=== PATIENT | female | born 1945 | race African-American/Black ===

== ENCOUNTER → 2016-10-23 | Day surgery (SDC) | payer MEDICARE ==
[~2016-10-23] MED LIST: ALLO1POW MC; ALLO300T PO; BENA20TA2 PO; BYSTOLIC10 MG PO; CELE200C PO; DILT180C29 PO; DOCU-109 PO; GLIM1TAB2 PO; HYDR-2762 PO; IV RINGERS,LACTATED 1000ML 1,000 ML IV SCH; LEVO25TA55 PO; LEVO75TA5 PO; LIDOCAINE 2% PF Vial for OR 5 ML VIAL. ONE; METO50TA2 PO; OMEP10CA PO; OMEP40CA5 PO; PROPOFOL 40 ML IV ONE; SITA1TBM7 PO; WARF7.5T48 PO; WARF7.5T6 PO
[2016-10-23 08:40] VITALS: BP 131/91
--- NOTE | 2016-10-23 11:49 | CONS ---
DATE OF CONSULTATION: 10/23/2016 REFERRING PHYSICIAN: Mikey Santana MD REASON FOR CONSULTATION: Anemia. HISTORY OF PRESENT ILLNESS: This is a 71-year-old -[place] female whose past medical history is significant for osteoarthrosis, diabetes, hyperlipidemia, hypertension, is seen with persistent anemia. She previously has undergone a partial gastrectomy for a large benign gastric polyp with continued bleeding and she is here today for reevaluation. Also has a history of colonic polyps dating back to 2009 and she presently is on warfarin for DVT. PAST MEDICAL HISTORY: DVT, blood clot, diabetes, hyperlipidemia, hypertension. ALLERGIES: AMLODIPINE, IODINE, OXYCODONE. MEDICATIONS: Include allopurinol, benazepril, Celebrex, diltiazem, glimepiride, hydrocodone, levothyroxine, metoprolol, Bystolic, omeprazole, Janumet and warfarin. FAMILY AND SOCIAL HISTORY: She has had hysterectomy, joint replacement surgery, gastric polyp resection. She is a nonsmoker, nondrinker. REVIEW OF SYSTEMS: Per records. PHYSICAL EXAMINATION: GENERAL: Reveals a well-nourished, well-developed -[place] female. VITAL SIGNS: Temperature is 97, pulse 108, respirations 20. HEENT: Normocephalic and atraumatic head. Pupils and extraocular movements not tested. Sclerae anicteric. NECK: Supple. LUNGS: Clear. CARDIOVASCULAR: Reveals S1, S2 without S3, S4 or appreciable murmur. ABDOMEN: Reveals a soft abdomen, normal bowel sounds, without appreciable hepatosplenomegaly. Multiple surgical incisions. EXTREMITIES: Reveals no cyanosis, clubbing or edema. IMPRESSION: Anemia iron deficiency, status post partial gastrectomy, history of colonic polyps and gastric polyps, etiology is to be determined, peptic ulcer disease, arteriovenous malformation, irritable bowel disease. Malignancy is certainly differential; therefore, recommend upper endoscopy and colonoscopy to further assess. Risks and benefits have been discussed with the patient who is willing to proceed at this time. LEONARDO TAPIA MD DR: RENE/jeannine JOB#: [id number] / [id number]
== END | disposition home or self-care (01) ==
LOC: ENDOS 07:13
PROVIDERS: ATTEND Internal Medicine Gastroenterology
DX: D50.9 Iron deficiency anemia, unspecified (principal); K64.0 First degree hemorrhoids; K57.30 Diverticulosis of large intestine without perforation or abscess without bleeding; K29.50 Unspecified chronic gastritis without bleeding; K31.7 Polyp of stomach and duodenum; E78.00 Pure hypercholesterolemia, unspecified; K21.9 Gastro-esophageal reflux disease without esophagitis; I12.9 Hypertensive chronic kidney disease with stage 1 through stage 4 chronic kidney disease, or unspecified chronic kidney disease; E11.22 Type 2 diabetes mellitus with diabetic chronic kidney disease; N18.2 Chronic kidney disease, stage 2 (mild); E03.9 Hypothyroidism, unspecified; Z86.39 Personal history of other endocrine, nutritional and metabolic disease; Z86.718 Personal history of other venous thrombosis and embolism; Z90.710 Acquired absence of both cervix and uterus; Z88.8 Allergy status to other drugs, medicaments and biological substances
CPT/HCPCS: 43235; 45378; J2704; J2001

== ENCOUNTER → 2016-12-16 | Outpatient (CLI) | payer MEDICARE ==
[~2016-12-16] VITALS: Ht 162.6 cm; Wt 65.8 kg
[~2016-12-16] MED LIST changes: -IV RINGERS,LACTATED 1000ML 1,000 ML IV SCH; +LIDOCAINE 1% / SOD BICARB 8.4% 20 ML VIAL. IJ ONE; -LIDOCAINE 2% PF Vial for OR 5 ML VIAL. ONE; +LIDOCAINE 2%/EPI 1:100,000 20 ML VIAL. IJ ONE; -PROPOFOL 40 ML IV ONE
[2016-12-16 12:49] VITALS: BP 164/75
--- NOTE | 2016-12-18 00:03 | PATHOLOGY ---
PATHOLOGY REPORT * * * * * * * * FINAL DIAGNOSIS: Breast tissue, right breast nodule core biopsies: - Hemangioma. COMMENT: Sections of the right breast nodule core biopsy reveal a well demarcated, lobulated capillary hemangioma showing focal thrombosis. There is no evidence of malignancy. (JPM:rlm; 12/17/2016) REPORT ELECTRONICALLY SIGNED BY: Sedrick Leyva M.D. DATE/TIME: 12/17/2016 15:46 * * * * * * * * GROSS PATHOLOGY: Received in formalin labeled "Kathy Bennett, right breast nodule," are multiple needle cores of yellow-kelly fibrofatty tissue measuring 2.0 x 3.7 x 0.9 cm in aggregate dimensions. The tissue is submitted in its entirety in cassette A1 through A3. The cold ischemic time is 13 minutes. The total formalin fixation time is 10 hours and 2 minutes. (TSD; 12/16/2016) INITIAL CPT CODE(S): A; 00453 Professional services performed [place] [facility] [place] [address] Technical services performed by [facility] at [address] [place] [address] [address] [address]. SPECIMEN(S) RECEIVED: A.Right breast nodule CLINICAL HISTORY: Right breast nodule PATIENT: KATHY BENNETT /AGE: 4 1945 (Age: 71) PATIENT #: [id number] ALT CASE #: SPECIMEN COLLECTION DATE: 12/16/2016 SPECIMEN RECEIVED DATE: 12/16/2016 [facility] - [address] [place] [address] - PHONE: [phone] * * * END OF REPORT * * *
--- NOTE | 2016-12-18 15:41 | RAD ---
Stereotactic right breast biopsy, 12/16/2016: Outside studies demonstrated a suspicious superficial nodule at the 3:00 location in the right breast posteriorly. Under local anesthesia, aseptic conditions and stereotactic guidance the ReTargeter biopsy instrument was passed into this region via a medial approach. Multiple 9 gauge vacuum-assisted core samples were obtained and sent to pathology for evaluation. A biopsy marker was deposited at the biopsy site. The biopsy device was then removed and hemostasis obtained. Two-view postprocedural digital mammograms were then obtained on a separate mammographic for documentation of the position of the biopsy marker. The biopsied lesion is now obscured by postbiopsy change and minimal hemorrhage. The patient tolerated the procedure well and left the department in good condition. The subsequent pathology report indicated the presence of a hemangioma with focal thrombosis. There was no evidence of malignancy. The findings are considered to be concordant.
== END | disposition home or self-care (01) ==
LOC: MAMMO 11:30
PROVIDERS: ATTEND Surgery
DX: N63.10 Unspecified lump in the right breast, unspecified quadrant (principal); D18.09 Hemangioma of other sites; I82.90 Acute embolism and thrombosis of unspecified vein
CPT/HCPCS: 19085; 77022; 88305; C1713; G0206; J3490; 77065

== ENCOUNTER → 2017-09-01 | Outpatient (CLI) | payer OTHER | END | disposition home or self-care (01) | LOC: NM 08:34 | DX: I08.8 Other rheumatic multiple valve diseases (principal); I12.9 Hypertensive chronic kidney disease with stage 1 through stage 4 chronic kidney disease, or unspecified chronic kidney disease; E11.22 Type 2 diabetes mellitus with diabetic chronic kidney disease; N18.3 Chronic kidney disease, stage 3 (moderate); E78.5 Hyperlipidemia, unspecified; D50.9 Iron deficiency anemia, unspecified; E03.9 Hypothyroidism, unspecified | CPT/HCPCS: 78452; 93017; 93306; 96374; 96376; A9500 ==

== ENCOUNTER 2017-12-18 15:03 | Emergency (ER) | payer OTHER ==
[~2017-12-18] VITALS: Ht 162.6 cm; Wt 63.5 kg
[~2017-12-18 15:03] MED LIST changes: -BENA20TA2 PO; +BENA20TA4 PO; -LIDOCAINE 1% / SOD BICARB 8.4% 20 ML VIAL. IJ ONE; -LIDOCAINE 2%/EPI 1:100,000 20 ML VIAL. IJ ONE; -METO50TA2 PO; +METO50TA6 PO; +WARF7.5T45 PO; -WARF7.5T6 PO
[2017-12-18] MEDS ORDERED: IV NORMAL SALINE 1000ML BAG 1,000 ML IV SCH (15:21)
[2017-12-18] MEDS ORDERED: LIDO:MAALOX 1:1 20 ML SINGLE DOSE. SWSW ONE (15:45)
[2017-12-18 15:53] LABS: BASO % 1 % (0-3); EOS # 0.1 x10^3/uL (0.0-0.7); EOS % 2 % (0-3); HEMATOCRIT 31.1 % (36.0-47.0); HEMOGLOBIN 10.3 g/dL (12.0-15.5); LYMPH % 30 % (24-48); MEAN CORPUSCULAR HEMOGLOBIN 24 pg (25-35); MEAN CORPUSCULAR HGB CONC 33 g/dL (31-37); MEAN CORPUSCULAR VOLUME 73 fL (79-100); MONO # 0.4 x10^3/uL (0.0-1.1); MONO % 6 % (0-9); NEUT # 4.4 x10^3uL (1.8-7.7); NEUT % 63 % (31-73); PLATELET COUNT 259 x10^3/uL (140-400); RED BLOOD COUNT 4.26 x10^6/uL (3.50-5.40); RED CELL DISTRIBUTION WIDTH 23.9 % (11.5-14.5); WHITE BLOOD COUNT 6.9 x10^3/uL (4.0-11.0)
[2017-12-18 15:59] LABS: CALCIUM 9.7 mg/dL (8.5-10.1); CREATININE 1.3 mg/dL (0.6-1.0); GFR 48.7; POTASSIUM 3.7 mmol/L (3.5-5.1)
[2017-12-18] MEDS ORDERED: cloNIDine HCL 0.1 MG TABLET PO ONE (16:00)
[2017-12-18 16:01] LABS: PROTHROMBIN TIME PATIENT 19.4 SEC (11.7-14.0)
[2017-12-18 16:05] LABS: ALBUMIN 3.6 g/dL (3.4-5.0); ALBUMIN/GLOBULIN RATIO 0.8 (1.0-1.7); MAGNESIUM 2.1 mg/dL (1.8-2.4); TOTAL BILIRUBIN 0.3 mg/dL (0.2-1.0); TOTAL PROTEIN 8.4 g/dL (6.4-8.2)
[2017-12-18 16:08] LABS: D-DIMER 2.06 ug/mlFEU (0.00-0.50)
--- NOTE | 2017-12-18 16:14 | RAD ---
AP chest. HISTORY: Chest pain AP view was taken of the chest. Lungs are clear. Heart is normal in size without heart failure. There is no effusion. IMPRESSION: 1. No acute chest disease. Electronically signed by: Zenon Swain MD (12/18/2017 4:11 PM) [facility]
[2017-12-18] MEDS ORDERED: MORPHINE SULFATE 10 MG/ML VIAL. IV ONE ×2 (16:15→20:00)
--- NOTE | 2017-12-18 16:33 | PHYS DOC ---
Past Medical History Past Medical History: Arthritis, Diabetes-Type II, DVT, Hypertension, Hypothyroid, Other Additional Past Medical Histor: ployps, gout Past Surgical History: Hip Replacement, Hysterectomy, Other Additional Past Surgical Histo: EGD, Colonoscopy, stomach polyp removal Alcohol Use: None Drug Use: None Adult General Chief Complaint Chief Complaint: CHEST PAIN [facility] HPI Patient is a 72 year old female who presents with epigastric pain times one week. The patient sees Dr. Avendano and is supposed to be scoped in 2 days. She states that the pain became a 10 out of 10 pain today and she presented to the hospital. She has been taking hkkw-ipv-hepesua medications at home with no relief. The patient had a clear clear stress test in August of this year. She denies radiation of the pain, dyspnea, diaphoresis or shortness of breath. The patient does have a clotting disorder. She does take a blood thinner daily. She denies headache, neck pain or fever. Review of Systems Review of Systems Constitutional: Denies fever or chills [] Eyes: Denies change in visual acuity, redness, or eye pain [] HENT: Denies nasal congestion or sore throat [] Respiratory: Denies cough or shortness of breath [] Cardiovascular: No additional information not addressed in HPI [] GI: See history of present illness : Denies dysuria or hematuria [] Musculoskeletal: Denies back pain or joint pain [] Integument: Denies rash or skin lesions [] Neurologic: Denies headache, focal weakness or sensory changes [] Endocrine: Denies polyuria or polydipsia [] All other systems were reviewed and found to be within normal limits, except as documented in this note. Current Medications Current Medications Current Medications Medications (Trade) Dose Ordered Sig/[facility] Start Time Stop Time Status Last Admin Dose Admin Clonidine HCl (Catapres) 0.1 mg 1X ONCE 12/18/17 16:00 12/18/17 16:01 DC 12/18/17 16:09 0.1 MG Morphine Sulfate (Morphine Sulfate) 5 mg 1X ONCE 12/18/17 20:00 12/18/17 20:01 DC 12/18/17 20:05 5 MG Multi-Ingredient Mouthwash/Gargle (Gi Cocktail) 20 ml 1X ONCE 12/18/17 15:45 12/18/17 15:48 DC 12/18/17 15:44 20 ML Sodium Chloride 1,000 ml @ 1,000 mls/hr Q1H 12/18/17 15:21 12/18/17 16:21 DC 12/18/17 15:43 1,000 MLS/HR Allergies Allergies Allergies Coded Allergies Type Severity Reaction Last Updated Verified iodine Allergy Severe 10/23/16 Yes amlodipine Allergy Intermediate 10/23/16 Yes oxycodone Allergy Intermediate hallucinations 10/23/16 Yes Physical Exam Physical Exam Constitutional: Well developed, well nourished, no acute distress, non-toxic appearance. [] HENT: Normocephalic, atraumatic, bilateral external ears normal, oropharynx moist, no oral exudates, nose normal. [] Eyes: PERRLA, EOMI, conjunctiva normal, no discharge. [] Neck: Normal range of motion, no tenderness, supple, no stridor. [] Cardiovascular:Heart rate regular rhythm, no murmur [] Lungs & Thorax: Bilateral breath sounds clear to auscultation [] Abdomen: Bowel sounds normal, epigastric tenderness, positive Bethea sign, no masses, no pulsatile masses. [] Skin: Warm, dry, no erythema, no rash. [] Back: No tenderness, no CVA tenderness. [] Extremities: No tenderness, no cyanosis, no clubbing, ROM intact, no edema. [] Neurologic: Alert and oriented X 3, normal motor function, normal sensory function, no focal deficits noted. [] Psychologic: Affect normal, judgement normal, mood normal. [] Current Patient Data Vital Signs Vital Signs Date Time Temp Pulse Resp B/P (MAP) Pulse Ox O2 Delivery O2 Flow Rate FiO2 12/18/17 20:17 76 20 201/92 (128) 98 Room Air 12/18/17 15:08 98.2 98.2 Lab Values Laboratory Tests Test 12/18/17 15:25 12/18/17 15:35 12/18/17 17:55 White Blood Count 6.9 x10^3/uL (4.0-11.0) Red Blood Count 4.26 x10^6/uL (3.50-5.40) Hemoglobin 10.3 g/dL (12.0-15.5) L Hematocrit 31.1 % (36.0-47.0) L Mean Corpuscular Volume 73 fL (79-100) L Mean Corpuscular Hemoglobin 24 pg (25-35) L Mean Corpuscular Hemoglobin Concent 33 g/dL (31-37) Red Cell Distribution Width 23.9 % (11.5-14.5) H Platelet Count 259 x10^3/uL (140-400) Neutrophils (%) (Auto) 63 % (31-73) Lymphocytes (%) (Auto) 30 % (24-48) Monocytes (%) (Auto) 6 % (0-9) Eosinophils (%) (Auto) 2 % (0-3) Basophils (%) (Auto) 1 % (0-3) Neutrophils # (Auto) 4.4 x10^3uL (1.8-7.7) Lymphocytes # (Auto) 2.0 x10^3/uL (1.0-4.8) Monocytes # (Auto) 0.4 x10^3/uL (0.0-1.1) Eosinophils # (Auto) 0.1 x10^3/uL (0.0-0.7) Basophils # (Auto) 0.0 x10^3/uL (0.0-0.2) Platelet Estimate Adequate (ADEQUATE) Polychromasia Slight Hypochromasia Slight Anisocytosis Mod Microcytosis Slight Tear Drop Cells Few Ovalocytes Few Prothrombin Time 19.4 SEC (11.7-14.0) H Prothrombin Time INR 1.7 (0.8-1.1) H D-Dimer (Marielos) 2.06 ug/mlFEU (0.00-0.50) H Sodium Level 142 mmol/L (136-145) Potassium Level 3.7 mmol/L (3.5-5.1) Chloride Level 104 mmol/L (98-107) Carbon Dioxide Level 25 mmol/L (21-32) Anion Gap 13 (6-14) Blood Urea Nitrogen 17 mg/dL (7-20) Creatinine 1.3 mg/dL (0.6-1.0) H Estimated GFR (Cockcroft-Gault) 48.7 BUN/Creatinine Ratio 13 (6-20) Glucose Level 150 mg/dL (70-99) H Calcium Level 9.7 mg/dL (8.5-10.1) Magnesium Level 2.1 mg/dL (1.8-2.4) Total Bilirubin 0.3 mg/dL (0.2-1.0) Aspartate Amino Transferase (AST) 85 U/L (15-37) H Alanine Aminotransferase (ALT) 57 U/L (14-59) Alkaline Phosphatase 127 U/L (46-116) H Troponin I Quantitative < 0.017 ng/mL (0.000-0.055) AQ-Apc-F-Type Natriuretic Peptide 130 pg/mL (0-124) H Total Protein 8.4 g/dL (6.4-8.2) H Albumin 3.6 g/dL (3.4-5.0) Albumin/Globulin Ratio 0.8 (1.0-1.7) L Lipase 216 U/L (73-393) POC Troponin I 0.00 ng/ml (<0.08) Urine Collection Type Unknown Urine Color Yellow Urine Clarity Clear Urine pH 5.0 Urine Specific [place] 1.015 Urine Protein Negative mg/dL (NEG-TRACE) Urine Glucose (UA) Negative mg/dL (NEG) Urine Ketones (Stick) Negative mg/dL (NEG) Urine Blood Trace (NEG) Urine Nitrite Negative (NEG) Urine Bilirubin Negative (NEG) Urine Urobilinogen Dipstick 0.2 mg/dL (0.2 mg/dL) Urine Leukocyte Esterase Moderate (NEG) Urine RBC 0 /HPF (0-2) Urine WBC >40 /HPF (0-4) Urine Bacteria 0 /HPF (0-FEW) Urine Hyaline Casts Many /HPF Urine Mucus Marked /LPF Laboratory Tests 12/18/17 15:25 Laboratory Tests 12/18/17 15:25 EKG EKG [] Radiology/Procedures Radiology/Procedures []PATIENT: GISELL GUILLAUME AACCOUNT: [id number]#: [id number] : 1945 LOCATION: ER AGE: 72 SEX: F EXAM STATUS: REG ER ORD. PHYSICIAN: PETER STRATTON APRN REASON: chest pain PROCEDURE: PORTABLE CHEST 1V AP chest. HISTORY: Chest pain AP view was taken of the chest. Lungs are clear. Heart is normal in size without heart failure. There is no effusion. IMPRESSION: 1. No acute chest disease. Electronically signed by: Zenon Swain MD (12/18/2017 4:11 PM) [facility] DICTATED and SIGNED BY: ZENON SWAIN MD DATE: 12/18/17 1610 PATIENT: GISELL GUILLAUME ACCOUNT: [id number] : 1945 LOCATION: ER AGE: 72 SEX: F EXAM STATUS: REG ER ORD. PHYSICIAN: PETER STRATTON APRN REASON: elevated d dimer with hx of clotting disorder, JM AWARE PROCEDURE: LUNG VENT/PERFUSION SCAN(VQ) Examination: LUNG VENT/PERFUSION SCAN(VQ) History: + d-dimer, pt reports chest pain x 3-4 days increasing over the past 2 days. hx of pe. Comparison/Correlation: 12/18/2017 portable chest x-ray exam Findings: 13 mCi xenon-133 gas was administered. Normal ventilation is evident. Slight delay in washout of radiotracer is identified. 6.5 mCi technetium 99m MAA was intravenously administered. Perfusion imaging was performed in 8 projections. There is no mismatch or suspicious matched defect. Impression: Low probability for pulmonary embolism. Electronically signed by: Balbir Tran MD (12/18/2017 7:35 PM) [facility] DICTATED and SIGNED BY: BALBIR TRAN MD DATE: 12/18/171922 Course & Med Decision Making Course & Med Decision Making Pertinent Labs and Imaging studies reviewed. (See chart for details) []Patient's VQ scan was negative for pulmonary embolism. The patient's CT scan was negative for an acute gallbladder or other abdominal cause for the epigastric pain. The patient is currently eating a sandwich in the room. She is to keep her follow-up appointment for her scope. She is in agreement with this plan. Dragon Disclaimer Dragon Disclaimer This electronic medical record was generated, in whole or in part, using a voice recognition dictation system. Departure Departure Impression: Primary Impression: UTI (urinary tract infection) Additional Impression: Epigastric abdominal pain Disposition: 01 HOME, SELF-CARE Condition: STABLE Referrals: JACQUELIN MANN MD (PCP) Patient Instructions: Abdominal Pain (Nonspecific), Urinary Tract Infection Additional Instructions: Take the medication as prescribed. Follow-up with your primary care provider in one week for urine recheck. Follow-up with your scientific editor for your scope in 2 days. If worsening return to the emergency department. Scripts Sucralfate (CARAFATE) 1 Gm Tablet 1 TAB PO QID, #30 TAB 1 Refill Prov: PETER STRATTON APRN 12/18/17 Sulfamethoxazole/Trimethoprim (BACTRIM DS TABLET) 1 Each Tablet 1 TAB PO BID, #14 TAB Prov: PETER STRATTON APRN 12/18/17 Problem Qualifiers PETER STRATTON APRN Dec 18, 2017 16:33
[2017-12-18 16:47] LABS: ANISOCYTOSIS MOD; HYPOCHROMIA SLIGHT; MICROCYTOSIS SLIGHT; OVALOCYTES FEW; PLT ESTIMATE ADEQUATE (ADEQUATE); POLYCHROMASIA SLIGHT; TEAR DROP CELLS FEW
--- NOTE | 2017-12-18 17:27 | EKG ---
[facility] [address] [place] [address] Test Date: 2017-12-18 Test Time: 15:10:44 Pat Name: GISELL GUILLAUME Department: Room: Gender: F [employer] Shop Coordinator: : 1945 Requested By: PETER STRATTON Order Number: [id number] Reading MD: Terrence Alcantara MD Measurements Intervals Vance Rate: 93 P: 10 [place]: 140 QRS: 18 QRSD: 92 T: 11 QT: 354 QTc: 443 Interpretive Statements SINUS RHYTHM Electronically Signed On 12-20-2017 11:34:13 CDT by Terrence Alcantara MD
--- NOTE | 2017-12-18 17:37 | RAD ---
CT abdomen pelvis without intravenous contrast History: Epigastric pain. Nausea. Comparison: None. Technique: CT of the abdomen and pelvis was performed without intravenous or oral contrast. No intravenous contrast was administered secondary to allergy. Exposure: One or more of the following individualized dose reduction techniques were utilized for this examination: 1. Automated exposure control 2. Adjustment of the mA and/or kV according to patient size 3. Use of iterative reconstruction technique Findings: Evaluation of solid organs is limited by lack of intravenous contrast. Evaluation of enteric structures may be limited by lack of oral contrast. Evaluation of the lower pelvis is limited secondary streak artifact emanating from patient's total hip arthroplasty. Liver, spleen, pancreas, gallbladder, and right adrenal gland are unremarkable. There is slight thickening of the left adrenal gland. Colonic diverticulosis is noted. No diverticulitis appreciated. Appendix appears within normal limits. Small fat-containing umbilical hernia is seen. Both kidneys demonstrate small low-density lesions, not adequately characterized on this examination. No renal stone or renal obstruction is identified. No free air or free fluid is seen in the abdomen or pelvis. Degenerative changes are present in the spine. There is grade 1 spondylolisthesis evident at L4-5 from facet hypertrophy. Impression: No acute abnormality identified in the abdomen or pelvis. Electronically signed by: Mikey Amaya MD (12/18/2017 5:34 PM) [facility]
[2017-12-18 18:20] LABS: BILIRUBIN,URINE NEGATIVE (NEG); CLARITY,URINE CLEAR; COLOR,URINE YELLOW; NITRITE,URINE NEGATIVE (NEG); PROTEIN,URINE NEGATIVE (NEG-TRACE); UROBILINOGEN,URINE 0.2 mg/dL (0.2 mg/dL)
[2017-12-18 18:37] LABS: BACTERIA,URINE 0 /HPF (0-FEW); HYALINE CASTS, URINE MANY /HPF; RBC,URINE 0 /HPF (0-2); WBC,URINE >40 /HPF (0-4)
--- NOTE | 2017-12-18 19:38 | RAD ---
Examination: LUNG VENT/PERFUSION SCAN(VQ) History: + d-dimer, pt reports chest pain x 3-4 days increasing over the past 2 days. hx of pe. Comparison/Correlation: 12/18/2017 portable chest x-ray exam Findings: 13 mCi xenon-133 gas was administered. Normal ventilation is evident. Slight delay in washout of radiotracer is identified. 6.5 mCi technetium 99m MAA was intravenously administered. Perfusion imaging was performed in 8 projections. There is no mismatch or suspicious matched defect. Impression: Low probability for pulmonary embolism. Electronically signed by: Balbir Robles MD (12/18/2017 7:35 PM) [facility]
[2017-12-18] MEDS ORDERED: SUCR1TAB35 PO (19:58)
[2017-12-18] MEDS ORDERED: SULF1TAB24 PO (19:58)
[2017-12-18 20:17] VITALS: BP 201/92
== END 2017-12-18 20:19 | disposition home or self-care (01) ==
LOC: ER 15:03
DX: N39.0 Urinary tract infection, site not specified (principal); D68.9 Coagulation defect, unspecified; Z79.01 Long term (current) use of anticoagulants; E03.9 Hypothyroidism, unspecified; E11.9 Type 2 diabetes mellitus without complications; I10 Essential (primary) hypertension; M10.9 Gout, unspecified; Z86.718 Personal history of other venous thrombosis and embolism; Z90.710 Acquired absence of both cervix and uterus; Z88.5 Allergy status to narcotic agent; Z88.8 Allergy status to other drugs, medicaments and biological substances; Z91.041 Radiographic dye allergy status
CPT/HCPCS: 36415; 71045; 74176; 78582; 80053; 81001; 83690; 83735; 83880; 84484; 85025; 85379; 85610; 87086; 93005; 96374; 96376; 99285; A9540; A9558; J2270; J7030

== ENCOUNTER → 2018-06-21 | Outpatient (CLI) | payer MEDICARE ==
[~2018-06-21] MED LIST changes: -HYDR-2762 PO; +HYDR-2765 PO; +SUCR1TAB35 PO; +SULF1TAB24 PO
--- NOTE | 2018-06-21 17:19 | RAD ---
DATE: 06/21/2018 EXAM: MAMMO HODAN SCREENING BILATERAL HISTORY: Routine screening COMPARISON: 12/16/2016, 10/27/2016 This study was interpreted with the benefit of Computerized Aided Detection (CAD). Breast Density: FATTY The breast parenchyma is primarily fatty replaced. Breast parenchyma level density A. FINDINGS: 2-D and 3-D tomosynthesis imaging was performed in CC and MLO projections. There is an old breast biopsy marker in the upper inner right breast related to a small persistent breast density. The previous biopsy results were benign. No new or enlarging breast densities are seen. Benign type calcifications are again noted. No suspicious microcalcifications have developed. IMPRESSION: There is no mammographic evidence of malignancy either breast. BI-RADS CATEGORY: 2 BENIGN FINDING(S) RECOMMENDED FOLLOW-UP: 12M 12 MONTH FOLLOW-UP PQRS compliance statement: Patient information was entered into a reminder system with a target due date for the next mammogram. Mammography is a sensitive method for finding small breast cancers, but it does not detect them all and is not a substitute for careful clinical examination. A negative mammogram does not negate a clinically suspicious finding and should not result in delay in biopsying a clinically suspicious abnormality. "Our facility is accredited by the [employer] Mammography Program."
== END | disposition home or self-care (01) ==
LOC: MAMMO 14:03
PROVIDERS: ATTEND Family Medicine
DX: Z12.31 Encounter for screening mammogram for malignant neoplasm of breast (principal)
CPT/HCPCS: 77063; 77067

== ENCOUNTER → 2018-10-19 | Outpatient (CLI) | payer MEDICARE ==
--- NOTE | 2018-10-19 16:08 | RAD ---
Examination: THYROID ULTRASOUND History: Throat mass. Comparison/Correlation: None Findings: Thyroid ultrasound exam was performed. The right thyroid lobe measures 4.1 cm x 1.4 cm x 1.8 cm. The left thyroid lobe measures 3.9 cm x 1.4 cm x 1.7 cm. Thyroid isthmus measures up to 0.3 cm. Normal flow is identified involving the thyroid gland. At the right thyroid lobe inferior pole, there is a complex, hypoechoic mass with vascularity on color Doppler imaging measuring 0.9 cm x 0.9 cm x 0.8 cm. Few punctate foci of calcification are evident. Impression: Right thyroid lobe inferior pole mass of TI-RADS category 4. Six-month follow-up thyroid ultrasound is recommended to assess stability. Electronically signed by: Balbir Robles MD (10/19/2018 4:05 PM) [facility]
== END | disposition home or self-care (01) ==
LOC: US 15:07
PROVIDERS: ATTEND Family Medicine
DX: E07.89 Other specified disorders of thyroid (principal)
CPT/HCPCS: 76536

== ENCOUNTER → 2018-12-21 | Outpatient (CLI) | payer MEDICARE ==
[~2018-12-21] MED LIST changes: -GLIM1TAB2 PO; +GLIM1TAB3 PO; +OMEP40CA45 PO; -OMEP40CA5 PO
--- NOTE | 2018-12-21 11:08 | CARD ---
MR#: [id number] Date of Study: 12/21/2018 Ordering Physician: TERRENCE ALCANTARA, Referring Physician: TERRENCE ALCANTARA, Tech: Kathy Alcala APPROVED REPORT EXAM: Two-dimensional and M-mode echocardiogram with Doppler and color Doppler. Other Information Quality : AverageHR: 68bpm INDICATION Hypertension/HCVD RISK FACTORS Hyperlipidemia Diabetes 2D DIMENSIONS RVDd3.2 (2.9-3.5cm)Left Atrium(2D)3.6 (1.6-4.0cm) IVSd1.4 (0.7-1.1cm)Aortic Root(2D)2.5 (2.0-3.7cm) LVDd4.3 (3.9-5.9cm)LVOT Diameter1.8 (1.8-2.4cm) PWd1.2 (0.7-1.1cm)LVDs2.7 (2.5-4.0cm) FS (%) 37.0 %SV55.9 ml LVEF(%)67.1 (>50%) Aortic Valve AoV Peak Roni.216.4cm/sAoV VTI52.2cm AO Peak GR.18.7mmHgLVOT Peak Roni.107.2cm/s AO Mean GR.9mmHgAVA (VMAX)1.29cm2 Mitral Valve MV E Qgqpjrtg693.4cm/sMV DECEL OECC303ed MV A Wxhvmsqu169.0cm/sE/A Ratio0.9 Pulmonary Valve PV Peak Gxbhvriy761.5cm/s Tricuspid Valve TR P. Gfauppsb252bw/sRAP LDZZYPAT6jcDz TR Peak Gr.61eyBdVVME29okTe Pulmonary Vein S1 Xielmjpm49.8cm/sD2 Zdetpmvh23.8cm/s PVa mfnalera137xuto LEFT VENTRICLE The left ventricle is normal size. There is moderate concentric left ventricular hypertrophy. The Eje ction Fraction is 55-60%. There is normal LV segmental wall motion. Transmitral Doppler flow pattern is Grade I-abnormal relaxation pattern. RIGHT VENTRICLE The right ventricle is normal size. There is normal right ventricular wall thickness. The right ventr icular systolic function is normal. ATRIA The left atrium size is normal. The right atrium size is normal. The interatrial septum is intact wit h no evidence for an atrial septal defect or patent foramen ovale as noted on 2-D or Doppler imaging. AORTIC VALVE The aortic valve is normal in structure and function. Doppler and Color Flow revealed no significant aortic regurgitation. There is no significant aortic valvular stenosis. MITRAL VALVE The mitral valve is thickened but opens well. There is no evidence of mitral valve prolapse. There is no mitral valve stenosis. Doppler and Color-flow revealed trace to mild mitral regurgitation. TRICUSPID VALVE The tricuspid valve is normal in structure and function. Doppler and Color Flow revealed trace tricus pid regurgitation with an estimated PAP of 29 mmHg. There is no tricuspid valve prolapse or vegetatio n. There is no tricuspid valve stenosis. PULMONIC VALVE The pulmonic valve is not well visualized. Doppler and Color Flow revealed no pulmonic valvular regur gitation. There is no pulmonic valvular stenosis. GREAT VESSELS The aortic root is normal in size. The IVC is normal in size and collapses >50% with inspiration. PERICARDIAL EFFUSION There is no evidence of significant pericardial effusion. Critical Notification Critical Value: No <Conclusion> The Ejection Fraction is 55-60%. There is normal LV segmental wall motion. There is moderate concentric left ventricular hypertrophy. Signed by : Terrence Alcantara, Electronically Approved : 12/21/2018 11:07:52
== END | disposition home or self-care (01) ==
LOC: ECHO 09:45
PROVIDERS: ATTEND Internal Medicine Cardiovascular Disease
DX: I34.0 Nonrheumatic mitral (valve) insufficiency (principal); I11.9 Hypertensive heart disease without heart failure; E78.5 Hyperlipidemia, unspecified; E11.9 Type 2 diabetes mellitus without complications
CPT/HCPCS: 93306

== ENCOUNTER → 2019-04-24 | Outpatient (CLI) | payer MEDICARE ==
[~2019-04-24] MED LIST changes: -GLIM1TAB3 PO; +GLIM1TAB7 PO
--- NOTE | 2019-04-24 18:03 | RAD ---
EXAM: Thyroid Ultrasound INDICATION: Thyroid mass. Bruit. ? TECHNIQUE: Real-time ultrasound of the thyroid was performed with permanent freeze-frame documentation. COMPARISON: Thyroid ultrasound of 10/19/2018 ? FINDINGS: THYROID: Thyroid gland is normal and homogeneous echogenicity. ? Right Lobe: 3.5 x 1.6 x 1.7 cm. ? Left Lobe: 3.1 x 1.6 x 1.3 cm. ? Isthmus: 0.4 cm. ?? A mixed solid and cystic oval mass of the right side of the isthmus measuring 9 x 6 x 8 mm is present. The nodule at the right inferior pole evident on the previous examination is no longer identified and may have since resolved. ? OTHER: No evidence of adjacent cervical adenopathy. ? IMPRESSION: ? 1. Interval resolution of the inferior pole right thyroid lobe nodule previously recommended for biopsy. 2. Interval development of a mixed solid and cystic nodule in the right-sided isthmus. It is not suspicious. TI-RADS 2 Electronically signed by: Kat Melo MD (04/24/2019 6:01 PM) [facility]
--- NOTE | 2019-04-25 10:26 | RAD ---
MR#: [id number] Date of Study: 04/24/2019 Ordering Physician: ROBIN DOW, Referring Physician: ROBIN DOW, Tech: Rodrick Swenson MBA, RDMS, RVT, RDCS, RTR APPROVED REPORT Patient Location: OUT-PATIENT Laterality:Bilateral Indications Bruit Doppler Spectral Velocity Analysis Right Left pCCA 75/12 cm/spCCA 114/19 cm/s mCCA 102/19 cm/smCCA 89/23 cm/s dCCA 76/15 cm/sdCCA 90/22 cm/s Bulb 64/17 cm/sBulb 75/25 cm/s ECA 90/ cm/sECA 106/ cm/s pICA 61/23 cm/spICA 81/29 cm/s Wilfred 83/30 cm/smICA 132/42 cm/s dICA 117/39 cm/sdICA 130/34 cm/s Vert. 82/ cm/sVert. 61/ cm/s Subcl. 175/ cm/sSubcl. 174/ cm/s ICA/CCA 1.15ICA/CCA 1.16 Findings Grayscale images of the bilateral common, internal and external carotid vessels demonstrates mild dif fuse intimal hyperplasia. On the right spectral waveforms and color Doppler are grossly within normal limits. Normal ICA to CCA ratios. Overall 0 to less than 50% stenosis. On the left there is likely a moderate stenosis involving the mid internal carotid artery. Approximat e 50-69% stenosis based on velocity criteria. Bilateral vertebral velocities are antegrade. No significant subclavian stenosis identified. Critical Notification Critical Value: No <Conclusion> 1. Moderate left internal carotid artery disease, otherwise grossly unremarkable Signed by : Robin Dow, Electronically Approved : 04/25/2019 10:25:38
== END | disposition home or self-care (01) ==
LOC: US 14:27
PROVIDERS: ATTEND Internal Medicine Cardiovascular Disease
DX: I65.22 Occlusion and stenosis of left carotid artery (principal); E04.1 Nontoxic single thyroid nodule
CPT/HCPCS: 76536; 93880

== ENCOUNTER → 2020-05-06 | Outpatient (CLI) | payer MEDICARE ==
--- NOTE | 2020-05-06 16:48 | CARD ---
MR#: [id number] Date of Study: 05/06/2020 Ordering Physician: TERRENCE ALCANTARA, Referring Physician: TERRENCE ALCANTARA, Tech: Kathy Alcala, [facility] APPROVED REPORT EXAM: Two-dimensional and M-mode echocardiogram with Doppler and color Doppler. Other Information Quality : GoodHR: 69bpm INDICATION Hypertension/HCVD RISK FACTORS Hypertension Hyperlipidemia Diabetes 2D DIMENSIONS RVDd3.3 (2.9-3.5cm)Left Atrium(2D)4.2 (1.6-4.0cm) IVSd1.4 (0.7-1.1cm)Aortic Root(2D)2.6 (2.0-3.7cm) LVDd4.4 (3.9-5.9cm)LVOT Diameter1.9 (1.8-2.4cm) PWd1.2 (0.7-1.1cm)LVDs2.4 (2.5-4.0cm) FS (%) 44.4 %SV66.0 ml LVEF(%)70.9 (>50%) Aortic Valve AoV Peak Roni.226.6cm/sAoV VTI53.0cm AO Peak GR.20.5mmHgLVOT Peak Roni.132.0cm/s AO Mean GR.12mmHgAVA (VMAX)1.62cm2 Mitral Valve MV E Phikcrwq09.8cm/sMV DECEL RKUX855lb MV A Wdibmvmv007.2cm/sE/A Ratio0.8 Pulmonary Valve PV Peak Lcrqkxho00.2cm/s Tricuspid Valve TR P. Ivfjjkir540el/sRAP WVSIQLPW6cjPe TR Peak Gr.85ssVzSMOS41hdXn Pulmonary Vein S1 Zoozhvur57.7cm/sD2 Mbtzamle92.0cm/s PVa [id number] LEFT VENTRICLE The left ventricle is normal size. There is mild to moderate concentric left ventricular hypertrophy. The left ventricular systolic function is normal and the ejection fraction is within normal range. T he Ejection Fraction is 60-65%. There is normal LV segmental wall motion. Transmitral Doppler flow pa ttern is Grade I-abnormal relaxation pattern. RIGHT VENTRICLE The right ventricle is normal size. There is normal right ventricular wall thickness. The right ventr icular systolic function is normal. ATRIA The left atrium size is normal. The right atrium size is normal. The interatrial septum is intact wit h no evidence for an atrial septal defect or patent foramen ovale as noted on 2-D or Doppler imaging. AORTIC VALVE The aortic valve is normal in structure and function. Doppler and Color Flow revealed no significant aortic regurgitation. Calculated aortic valve area is 1.9 cm2 with maximum pressure gradient of 21 mm Hg and mean pressure gradient of 12 mmHg. There is no significant aortic valvular stenosis. MITRAL VALVE The mitral valve is normal in structure and function. There is no evidence of mitral valve prolapse. There is no mitral valve stenosis. Doppler and Color-flow revealed trace to mild mitral regurgitation . TRICUSPID VALVE The tricuspid valve is normal in structure and function. Doppler and Color Flow revealed trace tricus pid regurgitation with an estimated PAP of 33 mmHg. There is no tricuspid valve stenosis. PULMONIC VALVE The pulmonic valve is not well visualized. Doppler and Color Flow revealed trace pulmonic valvular re gurgitation. There is no pulmonic valvular stenosis. GREAT VESSELS The aortic root is normal in size. The IVC is normal in size and collapses >50% with inspiration. PERICARDIAL EFFUSION There is no evidence of significant pericardial effusion. Critical Notification Critical Value: No <Conclusion> The left ventricular systolic function is normal and the ejection fraction is within normal range. Th e Ejection Fraction is 60-65%. There is normal LV segmental wall motion. Signed by : Terrence Alcantara, Electronically Approved : 05/06/2020 16:47:59
== END ==
LOC: ECHO 12:43
PROVIDERS: ATTEND Internal Medicine Cardiovascular Disease
DX: I34.0 Nonrheumatic mitral (valve) insufficiency (principal); I11.9 Hypertensive heart disease without heart failure
CPT/HCPCS: 93306

== ENCOUNTER → 2020-05-21 | Outpatient (CLI) | payer MEDICARE ==
[~2020-05-21] MED LIST changes: +REGADENOSON 0.4 MG/5 ML DISP.SYRIN. IV ONE
--- NOTE | 2020-05-21 13:21 | RAD ---
MR#: [id number] Date of Study: 05/21/2020 Ordering Physician: MEHDI ARZOLA, Referring Physician: DAWIT QUINONEZ Tech: RONIT Ty APPROVED REPORT Test Type: Pharmacological Stress Nurse/Tech: HO DAVIS Test Indications: CHEST PAIN Cardiac History: CP, HTN, MURMUR- SEE EMR Medications: SEE EMR Medical History: SEE EMR Resting ECG: SR W/1ST DEGREE AVB Resting Heart Rate: 78 bpm Resting Blood Pressure: 176/78mmHg Pretest Chest Pain: No chest pain Nurse/Tech Notes MURMUR NOTED, LUNGS CTA, DENIED CP OR SOA. BP ELEVATED. Consent: The procedure was explained to the patient in lay terms. Informed consent was witnessed. Delbert eout was entered into [employer]. History and Stress Test performed by CHANO Ross, AMANDA (R) (N) Pharm. Details Pharmacologic stress testing was performed using 0.4mg per 5ml of regadenoson given intravenously ove r 7-10 seconds. Stress Symptoms PT C/O BRIEF SOA, QUICKLY RESOLVED. VITALS ESSENTIALLY UNCHAGED. DENIED CHEST PAIN. POST EXERCISE Reason for Termination: Infusion complete Max HR: 99 bpm Max Blood Pressure: 183/94mmHg Blood Pressure response to exercise: Normal blood pressure response during stress. Heart Rate response to exercise: WNL Chest Pain: No. Arrhythmia: No. ST Change: No. NO SIGNIFICANT CHANGES FROM BASELINE EKG. INTERPRETATION Stress EKG Conclusion: No evidence of stress induced EKG changes. Imaging Protocol IMAGE PROTOCOL: Rest Tc-99m/stress Tc-99m 1 day Rest: Stress: Viability: Radiopharm.Tc99m AtmxwqllcEh89a Sestamibi Dose10.4mCi 33mCi Duration 15min. 10min. Img Date 05/21/2020 05/21/2020 Inj-Img Cied40plh. 60min. Rest Admin Site:IV - Left AntecubitalAdministrator:CHANO Ross, AMANDA (R)(N) Stress Admin Site: IV - Left AntecubitalAdministrator: Rajwinder Bowman, NMTCB, ARRT (R)(N) STRESS DATA End Diast. Vol.113.0mlAv. Heart Rate82.0bpm End Syst. Vol.26.0mlCO Index BSA0.0L/min Myocardial Menz890.0gEject. Pgijiybc46.0% Stress Rates Pk. Fill Rate4.13EDV/secLVtime Pk. Fill 180.24msec Pk. Empty Rate4.16ESV/secLVtime Pk. Ejgfn217.44msec 02/24 Pk. Fill0.69EDV/sec Stress Scores Regional WT1.00Summed WT3.00 Regional WM0.00Summed WM0.00 The rest and stress images show normal perfusion, normal contraction and thickening. LV Perf. Quant 17 Seg. SSS0.00 17 Seg. SRS0.00 17 Seg. SDS0.00 Stress Defect Extent (% LAD)0.00Rest Defect Extent (% LAD)0.00Rev. Defect Extent (% LAD)0.00 Stress Defect Extent (% LCX) 0.00Rest Defect Extent (% LCX)0.00Rev. Defect Extent (% LCX)0.00 Stress Defect Extent (% RCA)0.00Rest Defect Extent (% RCA)0.00Rev. Defect Extent (% RCA)0.00 Stress Defect Extent (% GERARDO)0.00Rest Defect Extent (% GERARDO)0.00Rev. Defect Extent (% GERARDO)0.00 Other Information Quality:Good Risk Assessment: Low Risk Conclusion 1. No evidence of EKG changes with stress testing. 2. Normal perfusion at stress/rest. 3. Low risk study. 4. EF > 60%. Signed by : Terrence Alcantara, Electronically Approved : 05/21/2020 13:20:58
== END ==
LOC: NM 09:21
PROVIDERS: ATTEND Internal Medicine Cardiovascular Disease
DX: I10 Essential (primary) hypertension (principal); R07.9 Chest pain, unspecified; R01.1 Cardiac murmur, unspecified
CPT/HCPCS: 78452; 93017; A9500; J2785